=== PATIENT | female | born 1965 | race Two or more races ===

== ENCOUNTER 2024-09-12 12:36 | Emergency (ER) | payer OTHER, SELFPAY ==
[2024-09-12 12:37] VITALS: BMI 24.5
[2024-09-12 12:42] VITALS: BP 112/78; PULSE 98; RESP 18; TEMP 37.2; O2SAT 98
--- NOTE | 2024-09-12 12:45 | XR_ITS ---
Examination: CT abdomen and pelvis without contrast. Coronal 3-D reconstructions. Sagittal 2-D reconstructions. Date and time of exam:September 12, 2024, 1328 hrs. Indications: Right flank pain with nausea vomiting beginning 3 days ago CTDI: vol (mGy): 5.63. DLP: (mGycm): 303. Technique: Axial images of the abdomen have been obtained, 3 mm slice thickness Intravenous contrast material has not been administered. Low dose protocols were performed. One or more of the following dose reduction techniques were used; automated exposure control, adjustment of the mA and/or KV according to patient size, use of iterative reconstruction technique. Findings: No focal liver or splenic lesions. No biliary tract dilatation. No gallstones. No renal or ureteral calculi, no hydronephrosis. No pericecal inflammatory change., Appendix is fluid-filled but no definite periappendiceal inflammatory change Colonic diverticulosis, no diverticulitis. No uterine or adnexal mass No bladder mass or bladder calculi Impression: No renal or ureteral calculi, no hydronephrosis No bladder calculi or cystitis pattern Appendix is fluid-filled and mildly thickened but no definite periappendiceal inflammatory change, clinical correlation advised.
[2024-09-12 13:00] LABS: Basophils # (Auto) 0.0 Thou/mm3 (0.0-0.2); Basophils % (Auto) 0 % (0-2.5); Eosinophils # (Auto) 0.1 Thou/mm3 (0.0-0.5); Eosinophils % (Auto) 1 % (0-10); Hematocrit 40.9 % (36.0-46.0); Hemoglobin 13.8 g/dL (12.0-16.0); Immature Granulocytes Auto 0.02 Thou/mm3 (0.00-0.00); Lymphocytes # (Auto) 1.0 Thou/mm3 (1.0-4.8); Lymphocytes % (Auto) 11 % (10-50); Mean Corpuscular HGB Conc 33.7 g/dl (31.0-37.0); Mean Corpuscular Hemoglobin 31.4 pg (25.0-35.0); Mean Corpuscular Volume 93 fL (80-100); Monocytes # (Auto) 0.3 Thou/mm3 (0.0-0.8); Monocytes % (Auto) 3 % (0-12); Neutrophils # (Auto) 8.2 Thou/mm3 (1.8-7.7); Neutrophils % (Auto) 85 % (37-80); Nucleated Red Blood Cell # 0.00 Thou/mm3 (0.00-0.00); Nucleated Red Blood Cell % 0 /100 WBC (0); Platelet Count 307 Thou/mm3 (140-440); RDW Standard Deviation 43.2 fL (36.4-46.3); Red Blood Count 4.39 Miln/mm3 (4.00-5.20); White Blood Count 9.6 Thou/mm3 (3.6-11.0)
[2024-09-12 13:17] LABS: Collection Type, Urine Clean Catch
[2024-09-12 13:21] LABS: Alanine Aminotransferase 32 U/L (10-49); Albumin, Serum 4.6 gm/dL (3.5-5.0); Albumin/Globulin Ratio 1.5 (1.2-2.2); Alkaline Phosphatase 136 U/L (46-116); Anion Gap 10 (7-16); Aspartate Amino Transferase 25 U/L (0-34); BUN/Creatinine Ratio 25 Ratio (12-20); Bilirubin,Total 0.9 mg/dL (0.3-1.2); Blood Urea Nitrogen 20 mg/dL (9-23); Calcium 9.4 mg/dL (8.3-10.6); Calcium (Corrected) 9.4 mg/dL (8.5-10.1); Carbon Dioxide 24.0 mMol/L (20.0-31.0); Chloride 105 mMol/L (98-107); Creatinine (Component) 0.8 mg/dL (0.6-1.3); Estimated Creatinine Clearance 63.2 mL/min (>60); Globulin 3.1 gm/dL (2.3-3.5); Glucose 171 mg/dL (74-106); Lipase 27 U/L (12-53); Osmolality,Calculated 284 (275-295); Potassium 4.1 mMol/L (3.4-5.1); Sodium 139 mMol/L (136-145); Total Protein 7.7 gm/dL (5.7-8.2); eGFR > 60 See Note
[2024-09-12 13:27] LABS: Bilirubin,Urine Negative (Negative); Blood,Urine 1+ (Negative); Clarity,Urine Clear (Clear/Hazy); Color,Urine Yellow (Lt Yel-Yel); Glucose, Urine Trace (Negative); Ketones,Urine Negative (Negative); Leukocyte Esterase,Urine Positive (Negative); Nitrite,Urine Negative (Negative); PH,Urine 5.5 (5.0-7.0); Protein,Urine Trace (Neg - Trace); RBC,Urine 10 /hpf (0-3); Specific Gravity,Urine 1.035 (1.001-1.035); Squamous Epithelial Cell,Urine 2 /hpf (0-5); Urobilinogen,Urine Negative mg/dL (0.0-1.0); WBC,Urine 77 /hpf (0-5)
--- NOTE | 2024-09-12 15:02 | PD.EDABDPN ---
ED Abdominal Pain RME/HPI General Chief Complaint: Abdominal Pain Stated complaint: LLQ ABD PAIN RADIATING TO L LOWER BACK X3DAYS Time seen by provider: 09/12/24 12:44 Arrival date/time: 09/12/24 12:36 This is a case of a 59-year-old female who came in in the emergency room with daughter due to left lower quadrant pain radiating to the left flank for 3 days associated with nausea vomiting worsening of the symptoms this patient decided to start consult here in the emergency room Limitations: no limitations Related Data Previous Rx's ?Medication ?Instructions ?Recorded Hydrocodone/Acetaminophen * (NORCO 1 tab PO Q6H PRN PAIN #12 tabs 02/17/17 5/325 *) ibuprofen 600 mg tablet 1 tab PO Q8HR PRN INFLAMMATION #30 02/17/17 tabs IBU 800 mg tablet (ibuprofen) 800 mg PO Q6H PRN pain #30 tabs 04/28/22 baclofen 10 mg tablet 10 mg PO BID #20 tabs 04/28/22 hydrocodone 5 mg-acetaminophen 325 1 tab PO Q6H PRN pain #14 tabs 08/26/22 mg tablet cephalexin 500 mg capsule 500 mg PO QID 10 days #40 caps 09/12/24 ibuprofen 800 mg tablet 800 mg PO Q8H PRN pain #20 tabs 09/12/24 ondansetron 4 mg disintegrating 4 mg PO Q8H PRN nausea and 09/12/24 tablet vomiting #10 tabs Allergies Allergy/AdvReac Type Severity Reaction Status Date / Time NKA* Allergy Uncoded 09/12/24 12:39 Review of Systems Review of Systems Systems Reviewed: All systems reviewed, normal except as documented Constitutional Constitutional: Reports system reviewed and no additional complaints, except as documented and Reports as per HPI ENT Ears, Nose, Mouth, and Throat: Denies dysphagia and Denies odynophagia Cardiovascular Cardiovascular: Reports system reviewed and no additional complaints, except as documented and Reports as per HPI Respiratory Respiratory: Reports system reviewed and no additional complaints, except as documented and Reports as per HPI Gastrointestinal Gastrointestinal: Reports system reviewed and no additional complaints, except as documented, Reports as per HPI, Reports abdominal pain, Denies belching, Denies bloating, Denies change in bowel habits, Denies change in stool character, Denies coffee ground emesis, Denies constipation, Denies cramping, Denies diarrhea, Denies dyspepsia, Denies dysphagia, Denies early satiety, Denies excessive flatus, Denies fecal incontinence, Denies heartburn, Denies hematemesis, Denies hematochezia, Denies loose stools, Denies melena, Reports nausea, Denies odynophagia, Denies tenesmus and Reports vomiting Genitourinary Genitourinary: Reports system reviewed and no additional complaints, except as documented and Reports as per HPI Neurologic Neurologic: Reports system reviewed and no additional complaints, except as documented and Reports as per HPI Past Medical History Past Medical History CARDIAC: Negative Congestive Heart Failure RESPIRATORY: Negative Chronic Obstructive Pulmonary Disease (COPD) GENITOURINARY: Negative Renal Disease ENDOCRINE: Positive Diabetes Mellitus Type 2; Negative Diabetes Mellitus Type 1 Social History SMOKING STATUS: Never smoker ED Exam General Limitations: Present no limitations General appearance: Present alert, in no apparent distress and other (Patient is awake alert oriented not in distress nontoxic looking well-hydrated well-nourished) Head Head exam: Present atraumatic, normocephalic and normal inspection Eye Eye exam: Present normal appearance, PERRL and EOMI ENT ENT exam: Present normal exam, normal oropharynx and mucous membranes moist Neck Neck exam: Present normal inspection, full ROM and trachea midline Chest Chest inspection: Present normal inspection and symmetric chest wall rise; Absent tenderness Respiratory Respiratory exam: Present normal lung sounds bilaterally; Absent respiratory distress, wheezes, stridor, accessory muscle use or prolonged expiratory phase Cardiovascular Cardiovascular exam: Present regular rate, normal rhythm and normal heart sounds; Absent bradycardia, tachycardia, irregular rhythm, systolic murmur or diastolic murmur Abdominal Exam Abdominal exam: Present soft and tenderness (Mild tenderness on the left lower quadrant and left flank no CVA tenderness); Absent distention, guarding, rebound, rigidity, normal bowel sounds, diminished bowel sounds, hyperactive bowel sounds, hypoactive bowel sounds, organomegaly, trauma, incision, psoas sign, obturator sign, heel tap sign, Morel's sign, Rovsing's sign, tenderness at McBurney's Point or hernia Abdominal tenderness: Present LLQ and mild Extremities Exam Extremities exam: Present normal inspection and full ROM Back Exam Back exam: Present normal inspection and full ROM Neurological Exam Neurological exam: Present alert, oriented X3, CN II-XII intact, normal gait and reflexes normal; Absent motor sensory deficit Psychiatric Psychiatric exam: Present normal affect and normal mood Skin Skin exam: Present warm, dry, intact and normal color Course Quality Measures none Orders Category Date Time Status CT abdomen pelvis wo con Stat Exams 09/12/24 12:45 Completed CBC Stat Lab 09/12/24 12:54 Completed Comprehensive Metabolic Panel Stat Lab 09/12/24 12:54 Completed Lipase Stat Lab 09/12/24 12:54 Completed Urinalysis Stat Lab 09/12/24 13:08 Completed HYDROcodone*/APAP 5/325 [Timewell 5/325] Med 09/12/24 14:59 Discontinued 1 tab PO X1 ONE Ondansetron Odt [Zofran Odt] Med 09/12/24 14:59 Discontinued 4 mg PO X1 ONE cefTRIAXone [Rocephin] 1,000 mg Med 09/12/24 14:59 Discontinued Lidocaine 1% 20 ml [Xylocaine 1% 20 ML] 2.1 ml IM X1 Vital Signs Vital signs: Vital Signs Temperature 99.0 F 09/12/24 12:42 Pulse Rate 98 09/12/24 12:42 Respiratory Rate 18 09/12/24 12:42 Blood Pressure 112/78 09/12/24 12:42 Pulse Oximetry (%) 98 09/12/24 12:42 Oxygen Delivery Method Room Air 09/12/24 12:42 Patient is afebrile not tachycardic not tachypneic blood pressure is normal not hypoxic oxygen saturation is 98% on room air Abdominal Pain MDM MDM Narrative MDM Narrative:: This is a case of a 59-year-old female who came in in the emergency room with daughter due to left lower quadrant pain radiating to the left flank for 3 days associated with nausea vomiting worsening of the symptoms this patient decided to start consult here in the emergency room physical examination patient is awake alert oriented not in distress nontoxic looking well-hydrated well-nourished abdominal exam noted mild tenderness in the left lower quadrant and left flank no guarding no rebound no rigidity negative psoas negative straight or negative Rovsing's negative McBurney's negative Morel sign negative CVA tenderness the rest of the physical examination neurological exam is normal and unremarkable blood test showed no leukocytosis no anemia kidney liver function is normal lipase is normal no electrolyte imbalance patient urinalysis showed WBC in the urine suggestive of urinary tract infection CT scan showed is unremarkable and normal there is a mild thickening of the appendix but no periappendiceal inflammatory I do not think patient is having appendicitis patient pain is on the left lower quadrant not in the right lower quadrant and there is no leukocytosis patient was given Timewell for the pain which condition markedly improved patient was also started on ceftriaxone for urinary tract infection and Zofran for vomiting patient will follow-up with PCP in 2 days for reevaluation for any recurrence persistent worsening symptoms with return precaution in the ER was advised Patient was discharged with comfortable condition walking with stable gait. Patient verbalized no further complains explained diagnosis and answered patient question. Patient is comfortable with the proposed management plan including the need to follow up with his/her primary care physician and any specialist if applicable Discussed patient for any urgent condition or worsening sx, He/She needed to go to emergency room immediately or call 911. Patient acknowledge the responsibility to follow up as instructed and to monitor her/his symptoms. For any persistence of the symptoms for more than 3-5 days return precaution advised. Discussed the result of the test and was given printed discharge instruction Patient data External records reviewed:: [facility] Clinical information provided by:: patient and family Social determinants that could affect healthcare access:: none Patient has the following chronic illnesses:: None How is presenting disease/condition affected by chronic disease/condition?: no chronic disease Evaluation data The following diagnostics were reviewed and interpreted by me:: lab results and radiology exam(s) Lab and/or radiology exams considered but not ordered:: Reviewed Interpretation Summary: Reviewed Medications / Prescriptions Medications or Prescriptions considered but not ordered:: Given Medication administrations:: Medication Administration History Discontinued Medications Hydrocodone Bitart/Acetaminophen (Hydrocodone/Apap 5/325 Tablet) 1 tab PO X1 ONE Stop: 09/12/24 15:00 Ceftriaxone Sodium 1,000 mg/ (Lidocaine HCl 2.1 ml) 0 mg IM X1 ONE Stop: 09/12/24 15:00 Ondansetron HCl (Ondansetron Odt 4 Mg Tabrap) 4 mg PO X1 ONE; Protocol Stop: 09/12/24 15:00 Given Consultations Consultation(s) initiated? (list below): No Diagnosis Differential diagnosis abdominal pain: abdominal pain, acute appendicitis, calculus of kidney, diverticulitis, endometriosis, gastroenteritis, pancreatitis and other (Urinary tract infection) Most likely diagnosis given after review of the tests above:: Urinary tract infection Admission Indicated Admission indicated?: not indicated Explain why admission is indicated or not indicated:: Not indicated Admission Request Was there a request for admission?: No Admission Attestation Admission request attestation: Not indicated Disposition Plan Disposition Plan: Discharge Discharge Attestation Discharge Attestation: The patient and all family members were given an opportunity to ask questions and understood the discharge instructions. Discharge instructions specifically effects, indications for sooner follow up or return to the emergency department, and the expected course of current diagnosis. Patient condition: Stable Discharge Plan Plan Patient Disposition: HOME (Self Care) Prescriptions/Referrals Prescriptions/Med Rec: New cephalexin 500 mg capsule 500 mg PO QID 10 Days Qty: 40 0RF ondansetron 4 mg tablet,disintegrating 4 mg PO Q8H PRN (Reason: nausea and vomiting) Qty: 10 0RF ibuprofen 800 mg tablet 800 mg PO Q8H PRN (Reason: pain) Qty: 20 0RF No Action ibuprofen 600 MG tablet 1 tab PO Q8HR PRN (Reason: INFLAMMATION) Qty: 30 0RF Hydrocodone/Acetaminophen * (NORCO 5/325 *) 1 TAB tablet 1 tab PO Q6H PRN (Reason: PAIN) Qty: 12 0RF ibuprofen [IBU] 800 mg tablet 800 mg PO Q6H PRN (Reason: pain) Qty: 30 0RF baclofen 10 mg tablet 10 mg PO BID Qty: 20 0RF hydrocodone-acetaminophen 5-325 mg tablet 1 tab PO Q6H MDD 4 PRN (Reason: pain) Qty: 14 0RF Problem List Clinical Impression: Abdominal pain, Urinary tract infection Patient/Caregiver Discharge Instructions Education Materials: Abdominal Pain, Understanding Urinary Tract ... Additional Instructions: Follow-up with your primary care physician in 2 days for reevaluation worsening symptoms or any emergent concern call 911 or go to the nearest emergency room take your medication as directed finish the course of antibiotic increase water intake keep hydrated spatulate Gatorade for hydration is advised Print Language: Polish Stand Alone Forms: Lorenza Award Info., Patient Portal Info Letter PA/WORD PROCESSING SUPERVISOR Supervising Physician PA/WORD PROCESSING SUPERVISOR Supervising Physician: Dr edwards
[2024-09-12] MEDS: HYDROcodone/APAP 5/325 TABLET 1 TAB PO (15:32)
[2024-09-12] MEDS: ONDANSETRON ODT 4 MG TABRAP PO (15:33)
[2024-09-12] MEDS: cefTRIAXone 1,000 MG, LIDOCAINE 1% 20 ML 2.1 ML IM (15:34)
== END 2024-09-12 15:59 | disposition home or self-care (01) ==
PROVIDERS: Nurse Practitioner Family; Emergency Provider Emergency Medicine
DX: N39.0 Urinary tract infection, site not specified (principal); R10.32 Left lower quadrant pain; R11.10 Vomiting, unspecified
CPT/HCPCS: 36415; 74176; 80053; 81001; 83690; 85025; 96372; 99283; J0696; J3490; Q0162; A9270

== ENCOUNTER 2025-01-03 10:40 | Emergency (ER) | payer OTHER, SELFPAY ==
[2025-01-03 10:41] VITALS: BP 117/61; PULSE 76; RESP 18; TEMP 36.6; O2SAT 99; BMI 24.6
--- NOTE | 2025-01-03 10:46 | EKG_ITS ---
[facility] Test Date: 2025-01-03 Pat Name: MICHAEL NOVA Department: Room: - Gender: Female Continuing Education Instructor: : 1965 Requested By: Marquis Elder Order Number: [id number] Reading MD: Marquis Elder Measurements Intervals [place] Rate: 72 P: 48 NE: 149 QRS: 57 QRSD: 85 T: 58 QT: 357 QTc: 392 Interpretive Statements SINUS RHYTHM No previous ECG available for comparison /store/S0/[id number].pdf
[2025-01-03 10:47] VITALS: PULSE 88; RESP 20; O2SAT 98
--- NOTE | 2025-01-03 10:58 | PD.EDSYNC ---
ED Syncope RME/HPI General Chief Complaint: Fall Stated Complaint: syncope Time Seen by Provider: 01/03/25 10:58 Arrival date/time: 01/03/25 10:40 RME / HPI RME / HPI narrative: See [facility] for Dr. Seals's HPI documentation. Related Data Previous Rx's ?Medication ?Instructions ?Recorded Hydrocodone/Acetaminophen * (NORCO 1 tab PO Q6H PRN PAIN #12 tabs 02/17/17 5/325 *) ibuprofen 600 mg tablet 1 tab PO Q8HR PRN INFLAMMATION #30 02/17/17 tabs IBU 800 mg tablet (ibuprofen) 800 mg PO Q6H PRN pain #30 tabs 04/28/22 baclofen 10 mg tablet 10 mg PO BID #20 tabs 04/28/22 hydrocodone 5 mg-acetaminophen 325 1 tab PO Q6H PRN pain #14 tabs 08/26/22 mg tablet ibuprofen 800 mg tablet 800 mg PO Q8H PRN pain #20 tabs 09/12/24 ondansetron 4 mg disintegrating 4 mg PO Q8H PRN nausea and 09/12/24 tablet vomiting #10 tabs cefdinir 300 mg capsule 300 mg PO BID #14 caps 01/03/25 Allergies Allergy/AdvReac Type Severity Reaction Status Date / Time No Known Allergies Allergy Unverified 01/03/25 11:03 Review of Systems Review of Systems Systems Reviewed: All systems reviewed, normal except as documented Past Medical History Past Medical History CARDIAC: Positive Cardiac Disorders and Hypertension ENDOCRINE: Positive Diabetes Mellitus Type 2 Surgical History SURGICAL: Positive of Shoulder Sx (R SHOULDER) and Tubal Ligation Social History SMOKING STATUS: Never smoker ED Exam Narrative Physical exam: See [facility] for Dr. Seals's physical exam documentation. Course Quality Measures none Orders Category Date Time Status EKG (ED ONLY) *Do not use* NOW Care 01/03/25 10:46 Completed Saline [Insert IV] NOW Care 01/03/25 11:00 Completed Straight [In and Out Catheter] X1 Care 01/03/25 11:[address] cervical spine wo con Stat Exams 01/03/25 11:[address] head/brain wo con Stat Exams 01/03/25 11:00 Completed EKG (ED Only) Stat Exams 01/03/25 10:46 Draft XR chest 1V portable Stat Exams 01/03/25 11:01 Completed BNP [B-Type Natriuretic Peptide] Stat Lab 01/03/25 11:05 Completed Bilirubin,Direct Stat Lab 01/03/25 11:05 Completed CBC Stat Lab 01/03/25 11:05 Completed CMP [Comprehensive Metabolic Panel] Stat Lab 01/03/25 11:05 Completed Hemoglobin A1C [Glycohemoglobin w (eAG)] Stat Lab 01/03/25 11:05 Completed Magnesium Stat Lab 01/03/25 11:05 Completed TSH [Thyroid Stimulating Hormone] Stat Lab 01/03/25 11:05 Completed Troponin I Stat Lab 01/03/25 11:05 Completed UA, C/S IF [Urinalysis, C/S if Indicated] Stat Lab 01/03/25 11:19 Completed Urine Culture Stat Lab 01/03/25 11:19 Received Insulin Regular Med 01/03/25 11:54 Discontinued 5 unit IV X1 ONE Ketorolac Inj [Toradol Inj] Med 01/03/25 11:00 Discontinued 30 mg IVP X1 ONE Morphine* Inj Med 01/03/25 11:00 Discontinued 2 mg IV X1 ONE Ondansetron Inj [Zofran Inj] Med 01/03/25 11:00 Discontinued 4 mg IVP X1 ONE Sodium Chloride 0.9% 1000 ml [Ns] 1,000 ml Med 01/03/25 11:00 Discontinued IV 999 mls/hr cefTRIAXone/D5w 1gm IV premix [Rocephin/D5w 1gm IV Med 01/03/25 12:10 Discontinued premix] 1 gm in 50 ml IV X1 Vital Signs Vital signs: Vital Signs Temperature 97.8 F 01/03/25 10:41 Pulse Rate 76 01/03/25 10:41 Respiratory Rate 18 01/03/25 10:41 Blood Pressure 117/61 01/03/25 10:41 Pulse Oximetry (%) 99 01/03/25 10:41 Oxygen Delivery Method Room Air 01/03/25 10:41 Pulse ox is 99% on room air which is adequate. Syncope MDM Narrative MDM Narrative:: This section includes all my notes and documentations, including HPI, PE, and ED course. 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 [place] After decision was made that he would not go to nursing home, she became extremely emotional. She passed out and hit the back of her head on the floor. Currently, she reports headache and nausea. No speech or visual impairment. No neck pain or back pain. No chest pain or abdominal pain. No pain in arms or legs. No other complaints. ROS: All negative except as documented in HPI. Physical Exam: General:? Alert and oriented.? No acute distress.? Eyes:? Conjunctivae and lids clear.? EOMI.? PERRL. ENT:? No signs of head trauma. Neck:? Supple.? No tenderness. Heart:? RRR. Lungs:? No respiratory distress.? Good air movement.? No rhonchi, wheezing, rales.? Chest:? No tenderness. Abdomen:? Soft and nontender.? Normal bowel sounds.? No distension.? No rebound or guarding.? Back:? No tenderness.? Skin:? Warm and dry.? Neuro:? Alert and oriented X 3.? Cranial Nerves II-XII grossly intact.? No peripheral motor deficits. Musculoskeletal:? All major joints and bones are not tender with no limited ROM. I reviewed EMS notes. I reviewed all diagnostic test results: My interpretation of the EKG: NSR (72 bpm) with no ST-T changes. My interpretation of the chest x-ray is: NAD. My review of the CT head report is: No acute findings. My review of the CT cervical spine report is: No acute fracture. Blood tests are unremarkable except Glu 320. UA showed leukocyte esterase, 8 WBC, and 1+ bacteria. At this point, diagnoses include: Syncope Head injury UTI Hyperglycemia Treatment here included: IVF Zofran 4 mg IV Morphine 2 mg IV Toradol 30 mg IV Insulin 5 units IV Rocephin 1 gram IV She felt much better. Recommended outpatient management. Based on my best medical judgment, made decision no further evaluation or treatment indicated at this time. Patient understands and agrees to the discharge instructions customized and printed, see below. Discharge Instructions from Dr. Seals printed for you: 1. There is no stroke or brain tumor or heart attack. 2. There is no brain injury or broken neck. 3. For urinary tract infection, take cefdinir as prescribed. For good hydration, increase oral fluid and maintain clear urine. If dark or yellow, increase oral fluid. 4. See a private doctor on 01/06/2025 for recheck and further care. Ask to review all test results and official radiology reports, to make sure you receive all necessary follow-ups and monitoring, including final urine culture results from today. Ask for help with better management of your diabetes. 5. Seek immediate medical care with severe and persistent headache, persistent vomiting, being extremely drowsy when you should be completely alert and awake, or with any concerns. Instrucciones de patricia del Dr. Seals (impresas para usted): 1. No presenta derrame cerebral, tumor cerebral ni infarto. 2. No presenta lesi?n cerebral ni fractura de makayla. 3. Para la infecci?n urinaria, tome cefdinir seg?n lo prescrito. Para harpreet buena hidrataci?n, aumente la ingesta de l?quidos y mantenga la orina gricelda. Si la orina es oscura o amarilla, aumente la ingesta de l?quidos. 4. Consulte a un m?dico particular el 06/01/2025 para harpreet revisi?n y atenci?n adicional. Solicite revisar todos los resultados de las pruebas y los informes radiol?gicos oficiales para asegurarse de recibir todos los seguimientos y controles necesarios, incluyendo los resultados finales del urocultivo de y. Solicite ayuda para un mejor control de narvaez diabetes. 5. Busque atenci?n m?dica inmediata si presenta dolor de napoleon intenso y persistente, v?mitos persistentes, somnolencia extrema cuando deber?a estar completamente alerta y despierto, o cualquier otra inquietud. Marquis Seals MD Patient data External records reviewed:: [facility] previous records and EMS form Clinical information provided by:: patient and EMS Social determinants that could affect healthcare access:: none Patient has the following chronic illnesses:: Hypertension, diabetes How is presenting disease/condition affected by chronic disease/condition?: exacerbated by Evaluation data The following diagnostics were reviewed and interpreted by me:: lab results, radiology exam(s) and EKG tracing(s) (My interpretation of the EKG: NSR (72 bpm) with no ST-T changes. Marquis Seals MD) Lab and/or radiology exams considered but not ordered:: None Interpretation Summary: I reviewed all diagnostic test results: My interpretation of the EKG: NSR (72 bpm) with no ST-T changes. My interpretation of the chest x-ray is: NAD. My review of the CT head report is: No acute findings. My review of the CT cervical spine report is: No acute fracture. Blood tests are unremarkable except Glu 320. UA showed leukocyte esterase, 8 WBC, and 1+ bacteria. Medications / Prescriptions Medications or Prescriptions considered but not ordered:: None Medication administrations:: Medication Administration History Discontinued Medications Sodium Chloride (Ns) 1,000 mls @ 999 mls/hr IV .Q1H1M ONE Stop: 01/03/25 12:00 Last Infusion: 01/03/25 12:14 Dose: Infused Documented By: Admin: 01/03/25 11:10 Dose: 999 mls/hr Documented By: MARSHAL Ceftriaxone Sodium/Dextrose (Rocephin/D5w 1gm Iv Premix) 1 gm in 50 mls @ 100 mls/hr IV X1 ONE Stop: 01/03/25 12:39 Last Infusion: 01/03/25 12:52 Dose: Infused Documented By: Admin: 01/03/25 12:24 Dose: 100 mls/hr Documented By: MARSHAL Insulin Human Regular (Insulin Hum Regular 1 Unit/0.01 Ml (Per Unit)) 5 unit IV X1 ONE Stop: 01/03/25 11:55 Last Admin: 01/03/25 12:04 Dose: 5 unit Documented By: ARF Co-signed By: MARSHAL Ketorolac Tromethamine (Ketorolac Inj 30 Mg/Ml Vial) 30 mg IVP X1 ONE Stop: 01/03/25 11:01 Last Admin: 01/03/25 11:09 Dose: 30 mg Documented By: MARSHAL Morphine Sulfate (Morphine Sulf Inj 4 Mg/Ml Vial) 2 mg IV X1 ONE Stop: 01/03/25 11:01 Last Admin: 01/03/25 11:08 Dose: 2 mg Documented By: MARSHAL Comments: GIVEN OVER 1 MINUTE Ondansetron HCl (Ondansetron Inj 2 Mg/Ml Inj 2 Ml) 4 mg IVP X1 ONE; Protocol Stop: 01/03/25 11:01 Last Admin: 01/03/25 11:06 Dose: 4 mg Documented By: MARSHAL Treatment here included: IVF Zofran 4 mg IV Morphine 2 mg IV Toradol 30 mg IV Insulin 5 units IV Rocephin 1 gram IV Consultations Consultation(s) initiated? (list below): No Diagnosis Syncope Differential Diagnosis: syncope due to orthostatic hypotension, vasovagal syncope, dehydration and other (Anxiety ) Most likely diagnosis given after review of the tests above:: Syncope Head injury UTI Hyperglycemia Admission Indicated Admission indicated?: not indicated Explain why admission is indicated or not indicated:: With significant improvement and no condition needing emergent intervention, there was no indication for admission. Admission Request Was there a request for admission?: No Disposition Plan Disposition Plan: Discharge Discharge Attestation Discharge Attestation: The patient and all family members were given an opportunity to ask questions and understood the discharge instructions. Discharge instructions specifically effects, indications for sooner follow up or return to the emergency department, and the expected course of current diagnosis. Patient condition: Stable Discharge Plan Plan Patient Disposition: HOME (Self Care) Prescriptions/Referrals Prescriptions/Med Rec: New cefdinir 300 mg capsule 300 mg PO BID Qty: 14 0RF No Action ibuprofen 600 MG tablet 1 tab PO Q8HR PRN (Reason: INFLAMMATION) Qty: 30 0RF Hydrocodone/Acetaminophen * (NORCO 5/325 *) 1 TAB tablet 1 tab PO Q6H PRN (Reason: PAIN) Qty: 12 0RF ondansetron 4 mg tablet,disintegrating 4 mg PO Q8H PRN (Reason: nausea and vomiting) Qty: 10 0RF ibuprofen 800 mg tablet 800 mg PO Q8H PRN (Reason: pain) Qty: 20 0RF ibuprofen [IBU] 800 mg tablet 800 mg PO Q6H PRN (Reason: pain) Qty: 30 0RF baclofen 10 mg tablet 10 mg PO BID Qty: 20 0RF hydrocodone-acetaminophen 5-325 mg tablet 1 tab PO Q6H MDD 4 PRN (Reason: pain) Qty: 14 0RF Referrals: No Primary/Family,Physician [Primary Care Provider] - In 1 week Problem List Clinical Impression: Syncope, Head injury, UTI (urinary tract infection) Patient/Caregiver Discharge Instructions Discharge Activity: activity as tolerated Education Materials: ED Head Injury with Sleep ..., ED Head Injury (Adult), ED Fainting, Uncertain Cause, ED CYSTITIS Female Adult Additional Instructions: Discharge Instructions from Dr. Seals printed for you: 1. There is no stroke or brain tumor or heart attack. 2. There is no brain injury or broken neck. 3. For urinary tract infection, take cefdinir as prescribed. For good hydration, increase oral fluid and maintain clear urine. If dark or yellow, increase oral fluid. 4. See a private doctor on 01/06/2025 for recheck and further care. Ask to review all test results and official radiology reports, to make sure you receive all necessary follow-ups and monitoring, including final urine culture results from today. Ask for help with better management of your diabetes. 5. Seek immediate medical care with severe and persistent headache, persistent vomiting, being extremely drowsy when you should be completely alert and awake, or with any concerns. Instrucciones de patricia del Dr. Seals (impresas para usted): 1. No presenta derrame cerebral, tumor cerebral ni infarto. 2. No presenta lesi?n cerebral ni fractura de makayla. 3. Para la infecci?n urinaria, tome cefdinir seg?n lo prescrito. Para harpreet buena hidrataci?n, aumente la ingesta de l?quidos y mantenga la orina gricelda. Si la orina es oscura o amarilla, aumente la ingesta de l?quidos. 4. Consulte a un m?dico particular el 06/01/2025 para harpreet revisi?n y atenci?n adicional. Solicite revisar todos los resultados de las pruebas y los informes radiol?gicos oficiales para asegurarse de recibir todos los seguimientos y controles necesarios, incluyendo los resultados finales del urocultivo de hoy. Solicite ayuda para un mejor control de narvaez diabetes. 5. Busque atenci?n m?dica inmediata si presenta dolor de napoleon intenso y persistente, v?mitos persistentes, somnolencia extrema cuando deber?a estar completamente alerta y despierto, o cualquier otra inquietud. Print Language: Divehi Stand Alone Forms: Lorenza Award Info., Patient Portal Info Letter
--- NOTE | 2025-01-03 11:00 | XR_ITS ---
Examination: CT brain head without contrast. 2-D sagittal coronal reconstructions Date and time of exam: January 03, 2025, 11:40 a.m. INDICATIONS: Patient fell today with injury to the head, head pain CTDI: vol (mGy): 46.8 DLP: (mGycm): 909 Technique: Multiple CT axial sections of the brain have been obtained, 5 mm slice thickness. Contrast has not been administered. 2-D sagittal, coronal reconstructions have been obtained Low dose protocols were performed. One or more of the following dose reduction techniques were used; automated exposure control, adjustment of the mA and/or KV according to patient size, use of iterative reconstruction technique. Findings: No significant ventricular enlargement. Intra-axial or extra-axial hemorrhage density is not seen. No mass effect or midline shift Basal cisterns are not remarkable. Fourth ventricle is midline. Cranial vault intact. Impression: Negative for acute hemorrhage, mass effect or midline shift
--- NOTE | 2025-01-03 11:00 | XR_ITS ---
Examination: CT cervical spine without contrast 2-D sagittal reconstructions 2-D coronal reconstructions 3-D reconstructions. Exam date and time: January 03, 2025, 11:40 a.m. INDICATIONS: Patient fell today after syncopal episode, injury to the neck, neck pain CTDI:vol (mGy) 13.5 DLP: (mGycm) 285 Technique: Multiple 2 mm axial sections of the cervical spine have been obtained. The coronal and sagittal reconstructions have been obtained. 3-D reconstructions have been obtained. Low dose protocols were performed. One or more of the following dose reduction techniques were used; automated exposure control, adjustment of the mA and/or KV according to patient size, use of iterative reconstruction technique. Findings: Axial sections demonstrate intact base of the skull. C1 exhibit satisfactory relationship to the odontoid. No acute cervical vertebral body fracture seen. Alignment posterior spinous processes satisfactory. Impression: No acute cervical fracture.
--- NOTE | 2025-01-03 11:01 | XR_ITS ---
EXAMINATION: AP chest single view TECHNIQUE: AP upright portable chest single view Date and time: January 03, 2025, 1206 hours COMPARISON: August 26, 2022 INDICATION: Shortness of breath today. FINDINGS: Normal heart size No pneumonia or pulmonary edema. Prominent osteopenia Old upper right rib fractures IMPRESSION: No active disease
[2025-01-03] MEDS: ONDANSETRON INJ 2 MG/ML INJ 2 ML 4 MG IVP (11:06)
[2025-01-03] MEDS: MORPHINE SULF INJ 4 MG/ML VIAL 2 MG IV (11:08)
[2025-01-03] MEDS: KETOROLAC INJ 30 MG/ML VIAL IVP (11:09)
[2025-01-03] MEDS: SODIUM CHLORIDE 0.9% 1000 ML 1,000 ML 999 ML IV (11:10)
[2025-01-03 11:20] LABS: Basophils # (Auto) 0.1 Thou/mm3 (0.0-0.2); Basophils % (Auto) 1 % (0-2.5); Eosinophils # (Auto) 0.1 Thou/mm3 (0.0-0.5); Eosinophils % (Auto) 1 % (0-10); Hematocrit 39.1 % (36.0-46.0); Hemoglobin 13.5 g/dL (12.0-16.0); Immature Granulocytes Auto 0.02 Thou/mm3 (0.00-0.00); Lymphocytes # (Auto) 1.6 Thou/mm3 (1.0-4.8); Lymphocytes % (Auto) 23 % (10-50); Mean Corpuscular HGB Conc 34.5 g/dl (31.0-37.0); Mean Corpuscular Hemoglobin 31.8 pg (25.0-35.0); Mean Corpuscular Volume 92 fL (80-100); Monocytes # (Auto) 0.3 Thou/mm3 (0.0-0.8); Monocytes % (Auto) 4 % (0-12); Neutrophils # (Auto) 5.2 Thou/mm3 (1.8-7.7); Neutrophils % (Auto) 71 % (37-80); Nucleated Red Blood Cell # 0.00 Thou/mm3 (0.00-0.00); Nucleated Red Blood Cell % 0 /100 WBC (0); Platelet Count 304 Thou/mm3 (140-440); RDW Standard Deviation 40.9 fL (36.4-46.3); Red Blood Count 4.25 Miln/mm3 (4.00-5.20); White Blood Count 7.3 Thou/mm3 (3.6-11.0)
[2025-01-03 11:30] LABS: Collection Type, Urine Clean Catch
[2025-01-03 11:43] LABS: Alanine Aminotransferase 39 U/L (10-49); Albumin, Serum 4.7 gm/dL (3.5-5.0); Albumin/Globulin Ratio 1.9 (1.2-2.2); Alkaline Phosphatase 142 U/L (46-116); Anion Gap 10 (7-16); Aspartate Amino Transferase 28 U/L (0-34); BUN/Creatinine Ratio 20 Ratio (12-20); Bilirubin,Direct 0.2 mg/dL (0.0-0.3); Bilirubin,Total 0.5 mg/dL (0.3-1.2); Blood Urea Nitrogen 14 mg/dL (9-23); Calcium 9.6 mg/dL (8.3-10.6); Calcium (Corrected) 9.6 mg/dL (8.5-10.1); Carbon Dioxide 25.3 mMol/L (20.0-31.0); Chloride 103 mMol/L (98-107); Creatinine (Component) 0.7 mg/dL (0.6-1.3); Estimated Creatinine Clearance 69.4 mL/min (>60); Globulin 2.5 gm/dL (2.3-3.5); Glucose 320 mg/dL (74-106); Magnesium 1.9 mg/dL (1.6-2.6); Osmolality,Calculated 288 (275-295); Potassium 3.8 mMol/L (3.4-5.1); Sodium 138 mMol/L (136-145); Thyroid Stimulating Hormone 2.34 uIU/mL (0.55-4.78); Total Protein 7.2 gm/dL (5.7-8.2); Troponin I < 0.002 ng/mL (0.0-0.045); eGFR > 60 See Note
[2025-01-03 11:55] LABS: Bacteria,Urine 1+; Bilirubin,Urine Negative (Negative); Blood,Urine Negative (Negative); Clarity,Urine Clear (Clear/Hazy); Color,Urine Lt-Yellow (Lt Yel-Yel); Glucose, Urine 4+ (Negative); Ketones,Urine Negative (Negative); Leukocyte Esterase,Urine Positive (Negative); Nitrite,Urine Negative (Negative); PH,Urine 6.0 (5.0-7.0); Protein,Urine Trace (Neg - Trace); RBC,Urine 1 /hpf (0-3); Specific Gravity,Urine 1.040 (1.001-1.035); Squamous Epithelial Cell,Urine 1 /hpf (0-5); Urobilinogen,Urine Negative mg/dL (0.0-1.0); WBC,Urine 8 /hpf (0-5)
[2025-01-03 11:56] LABS: B-Type Natriuretic Peptide < 20 pg/mL (0-100)
[2025-01-03 12:01] LABS: Culture Indicated,Urine Yes
[2025-01-03] MEDS: INSULIN HUM REGULAR 1 UNIT/0.01 ML (PER UNIT) 5 UNIT IV (12:04)
[2025-01-03] MEDS: cefTRIAXone/D5w 1gm IV premix 1 GM/50 ML BAG IV (12:24)
[2025-01-03 12:46] VITALS: BP 120/70; PULSE 74; RESP 17; TEMP 36.7; O2SAT 99
[2025-01-03 14:01] LABS: Glucose Estimated Average 240 mg/dL (80-131); Hemoglobin A1C 10.0 % Hgb (4.8-6.0)
== END 2025-01-03 12:53 | disposition home or self-care (01) ==
PROVIDERS: Emergency Provider Emergency Medicine
DX: S09.90XA Unspecified injury of head, initial encounter (principal); R55 Syncope and collapse; N39.0 Urinary tract infection, site not specified; W19.XXXA Unspecified fall, initial encounter
CPT/HCPCS: 36415; 70450; 71045; 72125; 80053; 81001; 82248; 83036; 83735; 83880; 84443; 84484; 85025; 87086; 93005; 96361; 96365; 96375; 99284; J0696; J1815; J1885; J2270; J2405; J7030